=== PATIENT | female | born 1975 | race Caucasian/White ===

== ENCOUNTER 2018-01-15 11:53 | Emergency (ER) | payer MEDICAID ==
[~2018-01-15] VITALS: Ht 165.1 cm; Wt 90.5 kg
[2018-01-15] MEDS ORDERED: ESCI10TA PO (12:24)
[2018-01-15] MEDS ORDERED: TRAZ150 PO (12:24)
[2018-01-15] MEDS ORDERED: BUSP15 PO (12:24)
[2018-01-15 13:01] VITALS: BP 104/57
== END 2018-01-15 15:01 | disposition home or self-care (01) ==
LOC: EMS 11:55
DX: M79.671 Pain in right foot (principal); F17.210 Nicotine dependence, cigarettes, uncomplicated
CPT/HCPCS: 99284

== ENCOUNTER 2018-01-18 10:02 | Emergency (ER) | payer MEDICAID ==
[~2018-01-18] VITALS: Ht 165.1 cm; Wt 93.2 kg
[~2018-01-18 10:02] MED LIST: BUSP15 PO; ESCI10TA PO; TRAZ150 PO
[2018-01-18 11:07] VITALS: BP 111/74
== END 2018-01-18 11:36 | disposition home or self-care (01) ==
LOC: EMS 10:03
DX: L02.211 Cutaneous abscess of abdominal wall (principal); F17.210 Nicotine dependence, cigarettes, uncomplicated
CPT/HCPCS: 99283; 99406

== ENCOUNTER 2018-10-01 19:01 | Emergency (ER) | payer MEDICAID ==
[~2018-10-01] VITALS: Ht 165.1 cm; Wt 113.6 kg
[2018-10-01] MEDS ORDERED: METH10 PO (20:13)
[2018-10-01 22:41] LABS: APPEARANCE,URINE CLEAR (CLEAR); BILIRUBIN,URINE NEGATIVE (NEGATIVE); GLUCOSE, URINE (UA) NEGATIVE (NEGATIVE); KETONES,URINE NEGATIVE (NEGATIVE); LEUKOCYTE ESTERASE ,URINE NEGATIVE (NEGATIVE); NITRATE,URINE NEGATIVE (NEGATIVE); OCCULT BLOOD,URINE NEGATIVE (NEGATIVE); PROTEIN,URINE NEGATIVE (NEGATIVE)
[2018-10-01 23:15] VITALS: BP 113/72
== END 2018-10-01 23:20 | disposition home or self-care (01) ==
LOC: EMS 19:02
DX: K59.00 Constipation, unspecified (principal); F17.210 Nicotine dependence, cigarettes, uncomplicated; F15.90 Other stimulant use, unspecified, uncomplicated; F11.20 Opioid dependence, uncomplicated; Z86.19 Personal history of other infectious and parasitic diseases; Z90.49 Acquired absence of other specified parts of digestive tract; Z90.710 Acquired absence of both cervix and uterus; Z79.899 Other long term (current) drug therapy